=== PATIENT | male | born 1965 | race Caucasian/White ===

== ENCOUNTER 2020-01-27 07:22 | Outpatient (CLI) | payer OTHER ==
[~2020-01-27] VITALS: Ht 165.1 cm; Wt 77.3 kg
--- NOTE | ~2020-01-27 | HEMODYNAMI ---
PATIENT:PREMA MARTINEZ MEDICAL RECORD: [id number] : 67 LOCATION:[facility] ADMISSION DATE: 01/27/20 Generatedon:01/27/202010:52 Patient name: PREMA MARTINEZ Patient #: [id number] SSN: : 1965 Date of study: 01/27/2020 Page: Of Hemodynamic Procedure Report Patient Data Patient Demographics Procedure consent was obtained First Name: PREMA Gender: Male Last Name: MICHELLE : 1965 Middle Initial: E Age: 54 year(s) Patient #: [id number] Race: Unknown Additional ID: [id number] Contact details [address]: [address] [place] [address] [place] State: [place] City: [place] Zip code: [address] Past Medical History Allergies: No known allergies Admission Admission Data Admission Date: 01/27/2020 Admission Time: 7:22 Procedure Procedure Types Cath Procedure Peripheral Cath Diagnostic Procedure Sales Route Driver Helper Peripheral Procedures Venography Renal Renal Venography Unilateral Procedure Description Procedure Date Procedure Date: 01/27/2020 Procedure Start Time: 10:00 Procedure Staff Name Function Darrin Patterson MD Performing Physician Naty Peters RT Ruby On Rails Consultant Selina Keen RN Nurse Rach Alejo RN Nurse Melvin Regalado RT Scrub Procedure Data Cath Procedure Fluoroscopy Diagnostic fluoroscopy Total fluoroscopy Time: time: 11.2 min 11.2 min Diagnostic fluoroscopy Total fluoroscopy dose: 207 dose: 207 mGy mGy Contrast Material Contrast Material Type Amount (ml) Isovue 300 45 Diagnostic catheters Device Type Used For End Catheter Placement Merit Steve Whitaker 5FR. 100CM catheter ([id number]) Procedure Medications Medication Administration Route Dosage Heparin Flush Bag added to field 2 bags (1000units/500ml NS) Lidocaine 1% added to field 20 Versed I.V. 1 mg Fentanyl I.V. 50 mcg Versed I.V. 1 mg Fentanyl I.V. 50 mcg Benadryl I.V. 25 mg Versed I.V. 1 mg Fentanyl I.V. 50 mcg Versed I.V. 1 mg Fentanyl I.V. 50 mcg Benadryl I.V. 25 mg Hemodynamics Rest Heart Rate: 68 (bpm) Snapshots Pre Cath Intra NCS Post Cath Vital Signs Time Heart Resp SPO2 etCO2 NIBP (mmHg) Rhythm Pain Sedation Rate (ipm) (%) (mmHg) Status Level (bpm) 9:49:19 58 12 100 34.7 136/75(99) NSR 0 (11) 10(A) , No pain 9:53:31 61 11 100 35.4 145/85(113) NSR 0 (11) 10(A) , No pain 9:57:47 70 10 100 38.5 145/83(115) NSR 0 (11) 10(A) , No pain 10:02:01 67 16 100 34.7 134/89(104) NSR 0 (11) 8(A) , No pain 10:06:11 65 8 100 38.5 139/80(112) NSR 0 (11) 8(A) , No pain 10:10:29 67 7 93 43 151/65(82) NSR 0 (11) 8(A) , No pain 10:14:49 62 11 100 12 132/82(92) NSR 0 (11) 8(A) , No pain 10:19:03 61 10 100 33.9 126/72(91) NSR 0 (11) 8(A) , No pain 10:23:15 61 11 100 42.2 120/69(91) NSR 0 (11) 8(A) , No pain 10:27:27 60 9 100 33.9 119/67(78) NSR 0 (11) 8(A) , No pain 10:31:37 57 16 99 35.4 126/66(84) NSR 0 (11) 8(A) , No pain 10:35:49 56 12 99 27.9 140/71(105) NSR 0 (11) 8(A) , No pain 10:40:05 57 12 41.5 127/76(95) NSR 0 (11) 8(A) , No pain 10:44:17 60 11 34.7 133/72(90) NSR 0 (11) 8(A) , No pain 10:48:31 59 10 10.5 125/79(102) NSR 0 (11) 8(A) , No pain Medications Time Medication Route Dose Verified Delivered Reason Notes Effe ctiveness by by 9:58:15 Heparin Flush added 2 Darrin Clifford used for Bag to bags Leonardo Leonardo procedure (1000units/500ml field MD AYALA NS) 9:58:27 Lidocaine 1% added 20ml Darrin Clifford for local to vial Leonardo Leonardo anesthetic field MD AYALA 10:01:25 Versed I.V. 1 mg Darrin Loyd for Leonardo Alejo RN sedation 10:01:37 Fentanyl I.V. 50 [facility] 10:03:20 Versed I.V. 1 mg Darrin Loyd for Leonardo Alejo RN sedation 10:03:28 Fentanyl I.V. 50 [facility] 10:05:15 Benadryl I.V. 25 mg Darrin Loyd for Leonardo Alejo RN sedation 10:06:25 Versed I.V. 1 mg Darrin Loyd for Leon[facility] Alejo RN sedation 10:06:32 Fentanyl I.V. 50 [facility] 10:31:59 Versed I.V. 1 mg Darrin Raygozai for Leon[facility] Alejo RN sedation 10:32:10 Fentanyl I.V. 50 [facility] 10:32:20 Benadryl I.V. 25 mg Darrin Raygozai for [facility] Alejo RN sedation Procedure Log Time Note 9:37:49 Time tracking: Regular hours (M-F 7:00 - 5:00) 9:38:07 Plan of Care:Hemodynamics will remain stable., Cardiac rhythm will remain stable., Comfort level will be maintained., Respiratory function will remain adequate., Patient/ family verbilizes understanding of procedure., Procedure tolerated without complication., Recovers from procedure without complications.. 9:38:27 Patient received from Outpatients to IR Alert and oriented. Tansferred to table in Supine position. 9:38:32 Signed procedure consent form obtained from patient. 9:38:38 H&P Date Dictated: 01/27/2020 Within 30 days and on chart., H&P Addendum completed by physician on day of procedure. (MUST COMPLETE FOR ALL OUTPATIENTS). 9:38:42 Pre-procedure instructions explained to patient. 9:38:43 Pre-op teaching completed and patient verbalized understanding. 9:38:44 Family in waiting room. 9:38:47 Patient NPO since Midnight. 9:38:53 Patient allergic to No known allergies 9:38:57 Is the patient allergic to Iodine/contrast media? No. 9:39:07 Patient diabetic? No. 9:39:18 Is patient on blood thinner?Yes, last dose 4 days ago 9:39:44 - 9:39:45 ----Pre-sedation anethsthesia assessment.---- 9:39:49 Previous problem with sedation/anesthesia? No ? 9:39:52 Snore? Yes 9:39:54 Sleep apnea? No 9:39:59 Deviated septum? No 9:40:01 Opens mouth fully? Yes 9:40:06 Sticks out tongue? Yes 9:40:09 Airway obstruction? No ? 9:40:13 Dentures? No ? 9:40:40 Right neck area was prepped with chlora-prep and draped in sterile fashion 9:40:43 - 9:41:51 Use device set IR Diagnostic 9:41:53 Tegaderm 4 x 4 ([id number]) opened to sterile field. 9:41:53 Sterile Angiographic Pack opened to sterile field. 9:41:54 Bag Decanter (2002S) opened to sterile field. 9:43:55 Micropuncture VSI 4FR kit opened to sterile field. 9:44:02 SHEATH 5FR Bivins ([id number]) opened to sterile field. 9:44:03 BENTSON 145cm wire ([id number]) opened to sterile field. 9:47:56 ECG and BP/O2 sat monitors applied to patient. 9:47:58 Vital chart was started 9:48:02 Baseline sample Acquired. 9:48:06 Full Disclosure recording started 9:48:07 - 9:58:15 Heparin Flush Bag (1000units/500ml NS) 2 bags added to field was administered by Darrin Patterson MD; used for procedure; Verbal order read back and verified. 9:58:27 Lidocaine 1% 20ml vial added to field was administered by Darrin parr MD; for local anesthetic; Verbal order read back and verified. 9:59:12 Fire Safety Assessment: A--An alcohol-based skin anteseptic being used preoperatively., C--Open oxygen or nitrous oxide is being used. 9:59:19 2) 60-89 Mildly reduced kidney function, and other findings (as for stage 1) point to kidney disease. 9:59:50 Maximum allowable contrast dose (3.7 X eGFR X 0.75)230 ml. 9:59:52 Physician arrived 9:59:53 --------ALL STOP TIME OUT------ 9:59:54 Final Timeout: patient, procedure, and site verified with staff and physician. All members of the team are in agreement. 10:00:19 Procedure started. 10:00:28 Local anesthetic to right IJ vein with Lidocaine 1% by Darrin Patterson MD.INITIAL ACCESS ONLY 10:00:42 A Florencia Coronadostein 5FR. 100CM catheter ([id number]) was advanced over the wire and used for . 10:01:25 Versed 1 mg I.V. was administered by Rach Alejo RN; for sedation; Verbal order read back and verified. 10:01:37 Fentanyl 50 mcg I.V. was administered by Rach Alejo RN; for sedation; Verbal order read back and verified. 10:03:20 Versed 1 mg I.V. was administered by Rach Alejo RN; for sedation; Verbal order read back and verified. 10:03:28 Fentanyl 50 mcg I.V. was administered by Rach Alejo RN; for sedation; Verbal order read back and verified. 10:05:15 Benadryl 25 mg I.V. was administered by Rach Alejo RN; for sedation; Verbal order read back and verified. 10:06:25 Versed 1 mg I.V. was administered by Rach Alejo RN; for sedation; Verbal order read back and verified. 10:06:32 Fentanyl 50 mcg I.V. was administered by Rach Alejo RN; for sedation; Verbal order read back and verified. 10:10:52 GLIDE WIRE ANGLE 180cm ([id number]) opened to sterile field. 10:11:15 TORQUE DEVICE PLASTIC .038 ( TD01) opened to sterile field. 10:16:04 Venous access obtained using ultrasound guidance. 10:19:21 SHEATH 6FR Destination (RSR01) opened to sterile field. 10:19:29 RODRIGUEZ 260 wire ([id number]) opened to sterile field. 10:30:32 STOPCOCK 3-Way Large Bore ([id number]) opened to sterile field. 10:31:59 Versed 1 mg I.V. was administered by Rach Alejo RN; for sedation; Verbal order read back and verified. 10:31:59 interlock 6x20 deployed. lot # [id number] 10:32:01 interlock 6x20 deployed. lot # [id number] 10:32:10 Fentanyl 50 mcg I.V. was administered by Rach Alejo RN; for sedation; Verbal order read back and verified. 10:32:20 Benadryl 25 mg I.V. was administered by Rach Alejo RN; for sedation; Verbal order read back and verified. 10:33:23 interlock 6x20 deployed. lot # [id number] 10:35:31 interlock 8x20 deployed. lot # [id number] 10:40:11 Procedure ended.(Physican Out) 10:49:36 Fluoroscopy time 11.20 minutes. 10:49:40 Fluoroscopy dose: 207 mGy 10:49:40 Flurop Dose total: 207 10:49:50 Contrast amount:Isovue 300 45ml. 10:51:51 Procedure and supply charges have been captured, reviewed, submitted an d are correct. 10:51:54 Report given to Outpatients. 10:52:04 Patient transfered to Outpatients with Stretcher. 10:52:46 Vital chart was stopped Device Usage Item Name Manufacture Quantity Catalog Hospital Part Current Minima l Lot# / Number Charge Number Stock Stock Serial# Code Tegaderm 4 x 3M 1 1626W [id number] 5 4 (1626W) Sterile Cardinal 1 [id number] 373769 873490 5 Angiographic Health Pack Bag Decanter Microtek 1 2001S 673178 62039 780690 5 (2001S) Medical Inc. Micropuncture VSI VASCULAR 1 7266V 007040 068327 5 VSI 4FR kit SOLUTIONS SHEATH 5FR Terumo 1 [id number] 837720 321681 356858 5 Bivins ([id number]) BENTSON 145cm Cook Medical 1 [id number] 484570 736701 5 wire ([id number]) Merit Impress Merit 1 [id number] 590648 607188 5 Whitaker Medical 5FR. 100CM catheter ([id number]) GLIDE WIRE Terumo 1 HR4391 636233 374911 085842 5 ANGLE 180cm (LL0606) TORQUE DEVICE [employer] 1 TD01 166233 420461 296011 5 PLASTIC .038 Scientific ( TD01) SHEATH 6FR Terumo 1 RSR01 548246 11057 759789 5 Destination (RSR01) RODRIGUEZ 260 [employer] 1 N71085 798694 02526 421429 5 wire (V22503) STOPCOCK Cook Medical 1 M28001 691034 5561 216580 5 [id number] 3-Way Large Bore ([id number]) Signature Audit Galvin Stage Time Signature Unsigned Intra-Procedure 01/27/2020 Naty Peters 10:52:42 AM RT(R) [facility] [address] [place] [address]
[2020-01-27 07:52] LABS: CALC OSMOLALITY 277 mosm/kg (275-300); CALCIUM 9.2 mg/dL (8.5-10.1); CARBON DIOXIDE 30.3 mmol/L (21.0-32.0); CHLORIDE - SERUM 104 mmol/L (98-107); GLUCOSE 96 mg/dL (74-106); POTASSIUM - SERUM 4.8 mmol/L (3.5-5.1); SODIUM 140 mmol/L (136-145); UREA NITROGEN 11 mg/dL (7-18); eGFR NON AFRICAN AMERICAN 83 mL/min (90-120)
[2020-01-27 08:01] LABS: APTT 24.7 SECONDS (22.8-39.4); BASOPHILS 0.8 % (0-2); EOSINOPHILS 4.2 % (0-7); HEMATOCRIT 44.6 % (42.0-54.0); HEMOGLOBIN 15.1 g/dL (13.5-17.5); INR 0.93 (0.85-1.17); LYMPHOCYTES 42.7 % (15-50); MCH 32.5 pg (26.0-34.0); MCHC 33.9 g/dL (31.0-37.0); MCV 96.1 fL (80.0-100.0); MEAN PLATELET VOLUME 11.1 fL (7.4-10.4); MONOCYTES 9.1 % (2-11); NEUTROPHILS 43.2 % (40-80); PLATELET COUNT 220 10x3/uL (130-400); PROTIME 12.4 SECONDS (11.6-15.0); RBC 4.64 10x6/uL (4.20-6.10); RDW 12.9 % (11.5-14.5)
[2020-01-27 09:02] VITALS: Ht 165.1 cm; Wt 77.3 kg
--- NOTE | 2020-01-27 15:25 | NUR ---
1300 IR NURSE AT BEDSIDE. OK TO DISCHAGE
== END 2020-01-27 13:00 | disposition home or self-care (01) ==
LOC: D.SP 07:22 → D.RAD 10:00 → D.SP 13:00
PROVIDERS: ATTEND Radiology Diagnostic Radiology
DX: I86.1 Scrotal varices (principal)